=== PATIENT | male | born 1995 | race Caucasian/White ===

== ENCOUNTER 2018-03-31 15:49 | Emergency (ER) | payer MEDICAID ==
[~2018-03-31] VITALS: Ht 175.3 cm; Wt 83.5 kg
[2018-03-31 16:04] VITALS: BP 124/94
[2018-03-31] MEDS ORDERED: IBUPROFEN CHILDRENS 100 MG/5 ML UDC PO ONE (17:15)
[2018-03-31] MEDS ORDERED: DEXAMETHASONE 10 MG/ML VIAL IM ONE (17:15)
[2018-03-31] MEDS ORDERED: cefTRIAXone 1,000 MG in LIDOCAINE MPF 1% - 5 mL VIAL 2.1 ML IM ONE (17:15)
--- NOTE | 2018-03-31 17:18 | NUR ---
22 yr male bib aunt with c/o sore throat x 5 days and difficulty swallowing. Family has the same s/s Took tylenol at 0900 this morning with no relief. PATIENT STATES PAIN OF 8/10 AT THIS TIME; VSS; PATIENT POSITIONED FOR COMFORT; HOB ELEVATED; BEDRAILS UP X2; BED DOWN. ER MD MADE AWARE OF PT STATUS.
[2018-03-31 18:24] VITALS: BP 119/89
--- NOTE | 2018-03-31 18:26 | NUR ---
Patient discharged with v/s stable. Written and verbal after care instructions given and explained. Patient alert, oriented and verbalized understanding of instructions. Ambulatory with steady gait. All questions addressed prior to discharge. ID band removed. Patient advised to follow up with PMD. Rx of CLINDAMYCIN AND IBUPROFEN given. Patient educated on indication of medication including possible reaction and side effects. Opportunity to ask questions provided and answered.
== END 2018-03-31 18:26 | disposition home or self-care (01) ==
LOC: MED 15:49
DX: J02.9 Acute pharyngitis, unspecified (principal); F17.210 Nicotine dependence, cigarettes, uncomplicated
CPT/HCPCS: 96372; 99283; J0696; J1100; J2001

== ENCOUNTER 2018-08-12 17:17 | Emergency (ER) | payer MEDICAID ==
[~2018-08-12] VITALS: Ht 175.3 cm; Wt 79.4 kg
[2018-08-12 17:25] VITALS: BP 127/79
--- NOTE | 2018-08-12 19:05 | NUR ---
REPORT RECEIVED FROM SHIVAM GAN.
--- NOTE | 2018-08-12 19:21 | NUR ---
PT TAKEN TO BED 11.
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
--- NOTE | 2018-08-12 20:30 | NUR ---
OPAL WRAP APPLIED TO LEFT WRIST BY ADRIÁN CHAVARRIA. CMS INTACT BEFORE AND AFTER WRAP APPLIED.
[2018-08-12 20:35] VITALS: BP 127/79
--- NOTE | 2018-08-12 20:35 | NUR ---
PT DISCHARGED BY DR ULLOA. RX OF NAPROSYN GIVEN. SIDE EFFECTS EXPLAINED. INSTRUCTED TO F/U WITH PCP AND WHEN TO RETURN TO ER. PT VERBALLIZED UNDERSTANDING OF DC INSTRUCTIONS. ALL QUESTIONS ANSWERED.
== END 2018-08-12 20:35 | disposition home or self-care (01) ==
LOC: MED 17:17
DX: S63.502A Unspecified sprain of left wrist, initial encounter (principal); S20.211A Contusion of right front wall of thorax, initial encounter; Z87.891 Personal history of nicotine dependence; V87.8XXA Person injured in other specified noncollision transport accidents involving motor vehicle (traffic), initial encounter; Y93.89 Activity, other specified; Y92.89 Other specified places as the place of occurrence of the external cause; Y99.8 Other external cause status
CPT/HCPCS: 73090; 73110; 73130; 99283

== ENCOUNTER 2018-09-20 11:59 | Emergency (ER) | payer MEDICAID ==
[~2018-09-20] VITALS: Ht 172.7 cm; Wt 88.1 kg
[2018-09-20 12:15] VITALS: BP 142/76
--- NOTE | 2018-09-20 12:45 | NUR ---
22 Y MALE BIB FRIEND C/O RT LOW Q ABD PAIN X 6 MTHS STS WORSE TODAY. +NAUSEA. DENIES VOMITING OR DIARRHEA. LAST BM THIS AM, STRAINED. ABDOMEN TENDER TO TOUCH, BOWEL SOUNDS ACTIVE IN ALL 4 QUADRANTS. PAIN 7/10. BED IS DOWN, LOCKED, BED RAIL X 1, ERMD TO SEE PT. PMH- DENIES RX- DENIES
--- NOTE | 2018-09-20 13:12 | NUR ---
REPORT GIVENT TO WILBERT GAN
[2018-09-20] MEDS ORDERED: FAMOTIDINE 20 MG TAB PO ONE (13:20)
[2018-09-20] MEDS ORDERED: ONDANSETRON 4 MG ODT PO ONE (13:20)
[2018-09-20 13:39] LABS: BASOPHILS % (AUTO) 0.3 % (0.0-2.0); EOSINOPHILS # (AUTO) 0.1 K/uL (0-0.4); EOSINOPHILS % (AUTO) 0.9 % (0.0-4.0); HEMATOCRIT 48.7 % (36-52); HEMOGLOBIN 16.5 g/dL (12.0-18.0); LYMPHOCYTES # (AUTO) 1.2 K/uL (2.0-11.5); LYMPHOCYTES % (AUTO) 19.5 % (20.5-51.1); MEAN CORPUSCULAR HEMOGLOBIN 32 pg (27-31); MEAN CORPUSCULAR HGB CONC 34 g/dL (33-37); MEAN CORPUSCULAR VOLUME 92.9 fL (80-94); MONOCYTES # (AUTO) 0.3 K/uL (0.8-1.0); MONOCYTES % (AUTO) 5.7 % (1.7-9.3); NEUTROPHILS # (AUTO) 4.4 K/uL (1.8-7.7); NEUTROPHILS % (AUTO) 73.6 % (42.2-75.2); PLATELET COUNT (AUTO) 235 K/uL (140-450); RED BLOOD CELL COUNT(AUTO) 5.24 MIL/uL (4.20-6.10); RED CELL DISTRIBUTION WIDTH 13.3 % (11.6-13.7)
[2018-09-20 13:39] LABS: APPEARANCE,URINE CLEAR (CLEAR); BILIRUBIN,URINE NEGATIVE (NEGATIVE); BLOOD, URINE NEGATIVE (NEGATIVE); COLOR,URINE YELLOW (YELLOW); LEUKOCYTE ESTERASE ,URINE NEGATIVE (NEGATIVE); NITRITE, URINE NEGATIVE (NEGATIVE); UGLUCOSE NEGATIVE (NEGATIVE)
[2018-09-20 13:49] LABS: ANION GAP 10.3 (8-16); CARBON DIOXIDE 29.5 mmol/L (21-32); POTASSIUM 3.8 mmol/L (3.5-5.1)
[2018-09-20 13:55] LABS: ALBUMIN 4.2 g/dL (3.4-5.0); TOTAL BILIRUBIN 1.3 mg/dL (0.0-1.0)
--- NOTE | 2018-09-20 14:35 | NUR ---
PT IN BED RESTING, MOTHER AT BEDSIDE, NO C/O PAIN AT THIS TIME, VSS
[2018-09-20 15:17] VITALS: BP 130/64
--- NOTE | 2018-09-20 15:17 | NUR ---
Patient discharged with v/s stable. Written and verbal after care instructions given and explained. Patient alert, oriented and verbalized understanding of instructions. Ambulatory with steady gait. All questions addressed prior to discharge. ID band removed. Patient advised to follow up with PMD. Rx of PEPCID 40 MG AND ZOFRAN ODT 4MG given. Patient educated on indication of medication including possible reaction and side effects. Opportunity to ask questions provided and answered.
== END 2018-09-20 15:17 | disposition home or self-care (01) ==
LOC: MED 11:59
DX: R10.11 Right upper quadrant pain (principal); R19.7 Diarrhea, unspecified; K59.00 Constipation, unspecified; K92.1 Melena; F17.210 Nicotine dependence, cigarettes, uncomplicated
CPT/HCPCS: 36415; 76700; 80053; 81003; 83690; 85025; 99284; Q0092; Q0162

== ENCOUNTER 2022-10-08 23:42 | Emergency (ER) | payer MEDICAID ==
[~2022-10-08] VITALS: Ht 172.7 cm; Wt 74.8 kg
[2022-10-09 00:20] VITALS: BP 124/87; PULSE 84; RESP 20; TEMP 97.4; O2SAT 100
== END 2022-10-09 02:58 | disposition left against medical advice (07) ==
LOC: MED 23:42
DX: M79.604 Pain in right leg (principal); M79.605 Pain in left leg; Z53.21 Procedure and treatment not carried out due to patient leaving prior to being seen by health care provider; V09.9XXA Pedestrian injured in unspecified transport accident, initial encounter; Y93.89 Activity, other specified; Y92.89 Other specified places as the place of occurrence of the external cause; Y99.8 Other external cause status
CPT/HCPCS: 99281